=== PATIENT | female | born 1990 | race Caucasian/White ===

== ENCOUNTER 2020-04-25 10:21 | Observation (INO) | payer BC, SELFPAY ==
[2020-04-25] VITALS (12 sets, daily range): BP systolic 132–161; BP diastolic 70–109; PULSE 77–113; RESP 18; TEMP 36.8; BMI 39.4
--- NOTE | ~2020-04-25 | US_ITS ---
EXAMINATION: US OB follow up, US umbilical doppler EXAM DATE: 04/25/2020 11:48 (accession [id number]), 04/25/2020 11:49 (accession [id number]) INDICATION: growth, MICHAEL. Elevated blood pressure. 3rd trimester. TECHNIQUE: Pelvic obstetrical transabdominal sonogram was performed by a technologist. There are mu ltiple grayscale and Doppler images available for interpretation. Arterial Doppler umbilical artery. FINDINGS: There is a single fetus identified in vertex presentation with a heart rate of 161 beats pe r minute. The placenta is located in the right fundal position. There is no sonographic evidence of retroplacental hemorrhage identified. The amniotic fluid index is 11.2 centimeters, which is normal. BIOMETRIC DATA: Biparietal diameter (BPD): 7.9cm ----------------> 31 weeks 6 days. Head circumference (HC): 27.9 cm ----------------> 30 weeks 3 days. Abdominal circumference (AC): 26.8 cm ----------> 31 weeks 0 days. Femur length (FL): 5.7 cm --------------------------> 30 weeks 0 days. These measurements are concordant. HC/AC ratio is 1.04 (The 5th -- 95th percentile range is 0.96-1.17. Estimated weight is 1618 g +/- 243 g. This is the 62nd percentile when the currently reported clinical gestation age 30 weeks 0 days, clinical estimated date of delivery (LESTER-OPE) 07/04/2020 is us ed. estimated gestational age based on measurements from this exam is 30 weeks 6 days, with an estimated date of delivery (LESTER-AUA) 06/28. UMBILICAL ARTERY DOPPLER Systolic/diastolic ratios obtained as follows: Near baby: 2.2 Mid aspect: 2.5 Near Placenta: 2.8 (The 5th -- 95th percentile range is 2.3-4.1). IMPRESSION: 1. Single fetus in vertex presentation with heart rate 161 beats per minute. 2. Estimated weight of 1618 grams, 62nd percentile using the currently reported clinical gesta tion age of 30 weeks 0 days, LESTER(OPE) 07/04. 3. Average umbilical artery Doppler systolic/diastolic ratio 2.5, normal. 4. Normal MICHAEL 11.2 cm. Reviewed, dictated and finalized at location B. ISTRY LABORATORY TECHNICIAN IMPRESSION: 1. Single fetus in vertex presentation with heart rate 161 beats per minute. 2. Estimated weight of 1618 grams, 62nd percentile using the currently r eported clinical gestation age of 30 weeks 0 days, LESTER(OPE) 07/04. 3. Average umbilical artery Doppler systolic/diastolic ratio 2.5, normal. 4. Normal MICHAEL 11.2 cm. IMPRESSION: 1. Single fetus in vertex presentation with heart rate 161 beats per minute. 2. Estimated weight of 1618 grams, 62nd percentile using the currently r eported clinical gestation age of 30 weeks 0 days, LESTER(OPE) /. 3. Average umbilical artery Doppler systolic/diastolic ratio 2.5, normal. 4. Normal MICHAEL 11.2 cm.
[2020-04-25 10:59] LABS: Basophils Percent Auto 0.2 % (0.2-1.2); Eosinophils Absolute Auto 0.1 K/mm3 (0-0.3); Eosinophils Percent Auto 0.6 % (0-4.4); Hematocrit 36.7 % (37.0-47.0); Hemoglobin 12.3 g/dL (12.0-15.0); Immature Granulocyte Absolute 0.08 K/mm3 (0.00-0.031); Immature Granulocyte Percent A 0.7 % (0-0.5); Lymphocytes Absolute Auto 1.28 K/mm3 (0.9-3.2); Lymphocytes Percent Auto 11.7 % (18.3-44.2); Mean Corpuscular HGB Conc 33.5 g/dl (32-36); Mean Corpuscular Hemoglobin 27.5 pg (26-34); Mean Corpuscular Volume 81.9 fl (80-100); Mean Platelet Volume 9.2 fl (7.4-10.4); Monocytes Absolute Auto 0.5 K/mm3 (0.1-0.6); Monocytes Percent Auto 4.6 % (2.6-8.5); Neutrophils Percent Auto 82.2 % (45.5-73.1); Platelet Count Result 166 k/mm3 (150-375); Red Blood Count 4.48 M/mm3 (4.2-5.4); Red Cell Distribution Width 14.5 % (11.5-14.5); White Blood Count 10.9 K/mm3 (4.5-10.0)
[2020-04-25 11:10] LABS: Add Urine Microscopic? YES; Appearance Urine Clear (Clear); Bacteria Urine Trace /hpf; Bilirubin Urine Negative (Negative); Blood Urine Negative (Negative); Color Urine Straw (Yellow); Glucose Urine UA Negative (Negative); Ketones Urine Negative (Negative); Leukocyte Esterase Ur Negative LEU/UL (NEGATIVE); Nitrate Urine Negative (Negative); Protein Urine 1+ mg/dL (Negative); RBC Urine 0-2 /hpf (0-2); Specific Grav Ur 1.006 (1.001-1.035); Squamous Epithelial Cell Urine Many /hpf (Few); Urobilinogen Urine Negative mg/dL (<2.0); WBC Urine 0-3 /hpf (0-3)
[2020-04-25 11:11] LABS: Alanine Aminotransferase 12 U/L (4-35); Albumin Level 3.7 g/dL (3.5-5.1); Alkaline Phosphatase 68 U/L (38-126); Anion Gap 8 mmol/L (8-16); Aspartate Amino Transferase 21 U/L (14-36); Bilirubin,Total 0.2 mg/dL (0.2-1.3); Blood Urea Nitrogen 8 mg/dL (7-17); Calcium 9.2 mg/dL (8.4-10.2); Carbon Dioxide 23 mmol/L (22-30); Chloride 105 mmol/L (98-107); Estimated Glomerular Filt Rate > 60; Glucose 93 mg/dL (65-105); Potassium 3.6 mmol/L (3.4-5.0); Sodium 136 mmol/L (137-145); Uric Acid 3.8 mg/dL (2.5-7.5)
[2020-04-25 11:13] LABS: Creatinine Urine 37.9 mg/dL; Total Protein Urine Random 32 mg/dL; Ur Ttl Prot Creatinine Ratio 0.84 mg/mg (0-0.20)
--- NOTE | 2020-04-25 11:27 | PC.NURSE ---
pt to ultrasound per wheelchair.
--- NOTE | 2020-04-25 11:49 | PC.NURSE ---
pt returned from ultrasound per wheelchair.
--- NOTE | 2020-04-25 13:02 | PC.NURSE ---
1257-Dr. Gallegos notified of pt's labs results, ultrasound results, reactive NST and blood pressures. New orders received to increase Labetalol to 200mg BID and have pt stay to collect 24 hour urine. NST Qshift and pt may eat.
[2020-04-25] MEDS: LABETALOL HCL 100 MG TABLET 200 MG PO ×2 (17:59→23:06)
[2020-04-26] VITALS (13 sets, daily range): BP systolic 124–155; BP diastolic 64–104; PULSE 77–102; RESP 18; TEMP 36.6
[2020-04-26] MEDS: LABETALOL HCL 100 MG TABLET 200 MG PO ×2 (05:57→14:18)
--- NOTE | 2020-04-26 11:58 | PM.OBTRLD ---
OB - Triage/Final Diagnosis Visit Information Comments/Additional reasons for admission: I have assessed the risk for this patient, Miya Erickson, and determined that she would benefit from observation care. Evaluation Laboratory results: Laboratory Tests 04/25/20 04/25/20 04/25/20 10:31 10:31 10:47 WBC 10.9 H RBC 4.48 Hgb 12.3 Hct 36.7 L MCV 81.9 MCH 27.5 MCHC 33.5 RDW 14.5 Plt Count 166 MPV 9.2 Immature Gran % (Auto) 0.7 H Neut % (Auto) 82.2 H Lymph % (Auto) 11.7 L [place] % (Auto) 4.6 Eos % (Auto) 0.6 Baso % (Auto) 0.2 Lymph # (Auto) 1.28 [place] # (Auto) 0.5 Eos # (Auto) 0.1 Baso # (Auto) 0.0 Abs Immat Gran (auto) 0.08 H Absolute Neuts (auto) 9.0 H Absolute Nucleated RBC 0.0 Nucleated RBC % 0.0 Sodium Potassium Chloride Carbon Dioxide Anion Gap BUN Creatinine Estim Creat Clear Calc Estimated GFR Glucose Uric Acid Calcium Total Bilirubin AST ALT Alkaline Phosphatase Total Protein Albumin Urine Color Straw Urine Appearance Clear Urine pH 7.0 Ur Specific [place] 1.006 Urine Protein 1+ H Urine Glucose (UA) Negative Urine Ketones Negative Ur Blood (Man) Negative Urine Nitrate Negative Urine Bilirubin Negative Urine Urobilinogen Negative Ur Leukocyte Esterase Negative Urine RBC 0-2 Urine WBC 0-3 Ur Squamous Epith Cells Many H Urine Bacteria Trace U Random Total Protein 32 Urine Creatinine 37.9 Protein/Creat Ratio 2 0.84 H 04/25/20 10:47 WBC RBC Hgb Hct MCV MCH MCHC RDW Plt Count MPV Immature Gran % (Auto) Neut % (Auto) Lymph % (Auto) [place] % (Auto) Eos % (Auto) Baso % (Auto) Lymph # (Auto) [place] # (Auto) Eos # (Auto) Baso # (Auto) Abs Immat Gran (auto) Absolute Neuts (auto) Absolute Nucleated RBC Nucleated RBC % Sodium 136 L Potassium 3.6 Chloride 105 Carbon Dioxide 23 Anion Gap 8 BUN 8 Creatinine 0.50 L Estim Creat Clear Calc Not Reportable Estimated GFR > 60 Glucose 93 Uric Acid 3.8 Calcium 9.2 Total Bilirubin 0.2 AST 21 ALT 12 Alkaline Phosphatase 68 Total Protein 7.0 Albumin 3.7 Urine Color Urine Appearance Urine pH Ur Specific [place] Urine Protein Urine Glucose (UA) Urine Ketones Ur Blood (Man) Urine Nitrate Urine Bilirubin Urine Urobilinogen Ur Leukocyte Esterase Urine RBC Urine WBC Ur Squamous Epith Cells Urine Bacteria U Random Total Protein Urine Creatinine Protein/Creat Ratio 2 Vital signs: Vital Signs - 24 hr 04/25/20 13:13 04/25/20 17:59 04/25/20 19:00 Temperature 36.8 C Pulse Rate 90 102 H Respiratory Rate 18 Blood Pressure Blood Pressure [Right Arm] 161/109 H 04/25/20 20:02 04/25/20 20:20 04/25/20 20:31 Temperature Pulse Rate 93 94 113 H Respiratory Rate Blood Pressure 160/96 H 143/73 H 159/86 H Blood Pressure [Right Arm] 04/25/20 21:01 04/25/20 21:31 04/25/20 22:01 Temperature Pulse Rate 96 85 93 Respiratory Rate Blood Pressure 145/78 H 146/82 H 134/74 Blood Pressure [Right Arm] 04/25/20 23:01 04/25/20 23:06 04/26/20 00:01 Temperature Pulse Rate 77 77 102 H Respiratory Rate Blood Pressure 132/70 127/65 Blood Pressure [Right Arm] 04/26/20 04:01 04/26/20 04:10 04/26/20 05:57 Temperature 36.6 C Pulse Rate 82 92 Respiratory Rate 18 Blood Pressure 135/75 155/104 H Blood Pressure [Right Arm] 04/26/20 06:01 04/26/20 07:01 04/26/20 08:01 Temperature Pulse Rate 83 87 77 Respiratory Rate Blood Pressure 146/84 H 135/73 124/64 Blood Pressure [Right Arm] 04/26/20 09:01 04/26/20 10:01 04/26/20 11:01 Temperature Pulse Rate 77 79 86 Respiratory Rate Blood Pressure 133/80 127/70 128/71 Blood Pressure [Right Arm] Final Diagnosis (1) Chronic hypertension affecting : Code(s): O1
[2020-04-26 12:00] LABS: Collection Time Urine 24 HOURS
[2020-04-26 12:01] LABS: Patient Weight 222 Lbs
[2020-04-26 12:24] LABS: Total Volume 24 Hour Urine 4200 ml
[2020-04-26 12:27] LABS: Creatinine Urine 41.2 mg/dL
[2020-04-26 12:41] LABS: Specific Gravity Ur 1.004
[2020-04-26 12:42] LABS: Creatinine Clearance Urine 206.4 ml/min (75-125); Serum Creat 0.5; Total Volume 24 Hour Urine 4200 ml
[2020-04-26 14:09] LABS: Total Protein Urine 24 Hr 697 mg/24hr (0-149); Total Protein Urine Random 16.6 mg/dL (0.0-11.9)
[2020-04-26] MEDS: BETAMETHASONE SOD PHOS/ACETATE 30 MG/5 ML VIAL 12 MG IM (14:36)
== END 2020-04-26 14:47 | disposition home or self-care (01) ==
LOC: ANHOBPP 19:51 → ANHOBOP 04-26 11:04 → ANHOBPP 04-26 11:04
PROVIDERS: Admitting Provider Obstetrics & Gynecology Gynecology; PCP Family Medicine; Visit Provider Obstetrics & Gynecology
DX: O10.919 Unspecified pre-existing hypertension complicating pregnancy, unspecified trimester (principal); Z3A.30 30 weeks gestation of pregnancy
CPT/HCPCS: 36415; 59025; 76816; 76820; 80053; 81001; 81050; 82570; 82575; 84156; 84550; 85025; 87086; 96372; 99199; A9270; G0378; G0379; J0702

== ENCOUNTER 2020-04-27 14:07 | Outpatient (CLI) | payer BC, SELFPAY ==
[2020-04-27] MEDS: BETAMETHASONE SOD PHOS/ACETATE 30 MG/5 ML VIAL 12 MG IM (14:20)
== END 2020-04-27 14:08 | disposition home or self-care (01) ==
LOC: ANHOBOP 14:17
PROVIDERS: PCP Family Medicine; Visit Provider Obstetrics & Gynecology
DX: O36.8990 Maternal care for other specified fetal problems, unspecified trimester, not applicable or unspecified (principal); Z3A.00 Weeks of gestation of pregnancy not specified
CPT/HCPCS: 96372; J0702

== ENCOUNTER 2020-05-09 10:02 | Outpatient (CLI) | payer BC, SELFPAY ==
[2020-05-09] VITALS (10 sets, daily range): BP systolic 140–166; BP diastolic 67–109; PULSE 85–106
[2020-05-09 10:52] LABS: Hematocrit 35.1 % (37.0-47.0); Hemoglobin 12.1 g/dL (12.0-15.0); Mean Corpuscular HGB Conc 34.5 g/dl (32-36); Mean Corpuscular Hemoglobin 27.3 pg (26-34); Mean Corpuscular Volume 79.2 fl (80-100); Mean Platelet Volume 10.5 fl (7.4-10.4); Platelet Count Result 184 k/mm3 (150-375); Red Blood Count 4.43 M/mm3 (4.2-5.4); Red Cell Distribution Width 14.4 % (11.5-14.5); White Blood Count 13.5 K/mm3 (4.5-10.0)
[2020-05-09 10:58] LABS: Add Urine Microscopic? YES; Appearance Urine Clear (Clear); Bilirubin Urine Negative (Negative); Blood Urine Negative (Negative); Color Urine Colorless (Yellow); Glucose Urine UA Negative (Negative); Ketones Urine Negative (Negative); Leukocyte Esterase Ur Negative LEU/UL (NEGATIVE); Nitrate Urine Negative (Negative); Protein Urine 1+ mg/dL (Negative); RBC Urine 0-2 /hpf (0-2); Specific Grav Ur 1.006 (1.001-1.035); Squamous Epithelial Cell Urine Occasional /hpf (Few); Urobilinogen Urine Negative mg/dL (<2.0); WBC Urine 0-3 /hpf (0-3)
[2020-05-09 11:03] LABS: Alanine Aminotransferase 11 U/L (4-35); Albumin Level 3.5 g/dL (3.5-5.1); Alkaline Phosphatase 66 U/L (38-126); Anion Gap 6 mmol/L (8-16); Aspartate Amino Transferase 18 U/L (14-36); Bilirubin,Total 0.2 mg/dL (0.2-1.3); Blood Urea Nitrogen 11 mg/dL (7-17); Calcium 9.1 mg/dL (8.4-10.2); Carbon Dioxide 22 mmol/L (22-30); Chloride 106 mmol/L (98-107); Creatinine Urine 29.5 mg/dL; Estimated Glomerular Filt Rate > 60; Glucose 124 mg/dL (65-105); Potassium 3.5 mmol/L (3.4-5.0); Sodium 134 mmol/L (137-145); Total Protein Urine Random 48 mg/dL; Ur Ttl Prot Creatinine Ratio 1.63 mg/mg (0-0.20); Uric Acid 4.3 mg/dL (2.5-7.5)
[2020-05-09 11:10] LABS: Lymphocytes Absolute Manual 1.35 K/mm3 (1.1-4.5); Monocytes Absolute Manual 0.54 K/mm3 (0.1-0.90); Monocytes Percent Manual 4 % (3-9); Neutrophils Percent Manual 86 % (46-73); Total Cells Counted 100
[2020-05-09 11:11] LABS: Platelet Estimate Adequate (Adequate)
[2020-05-09] MEDS: LABETALOL HCL 100 MG TABLET 200 MG PO (11:40)
[2020-05-09] MEDS: NIFEdipine 30 MG TAB.ER.24 PO (11:40)
--- NOTE | 2020-05-09 14:20 | PC.NURSE ---
Dr Gallegos notified of Bp's after medications. Orders for RX plan at home. No repeat 24 hours at this time.
== END 2020-05-09 14:25 | disposition home or self-care (01) ==
LOC: ANHOBOP 10:06 → ANHOBPP 10:07
PROVIDERS: PCP Family Medicine; Visit Provider Obstetrics & Gynecology
DX: O13.9 Gestational [pregnancy-induced] hypertension without significant proteinuria, unspecified trimester (principal); Z3A.00 Weeks of gestation of pregnancy not specified
CPT/HCPCS: 36415; 59025; 80053; 81001; 82570; 84156; 84550; 85025; 85055; 87086; 87088; 99199; A9270

== ENCOUNTER 2020-05-13 11:16 | Inpatient (IN) | payer BC, SELFPAY ==
[2020-05-13] VITALS (26 sets, daily range): BP systolic 137–176; BP diastolic 76–111; PULSE 87–108; TEMP 37.2; BMI 39.4
--- NOTE | ~2020-05-13 | US_ITS ---
EXAMINATION: US OB follow up, US umbilical doppler EXAM DATE: 05/14/2020 10:38 INDICATION: Growth, MICHAEL- Please complete at bedside . Elevated blood pressure. 3rd trimester. TECHNIQUE: Pelvic obstetrical transabdominal sonogram was performed by a technologist. Umbilical art rubi Dopplers. There are multiple grayscale and Doppler images available for interpretation. Compariso n is made to prior examination from 04/25/2020. FINDINGS: There is a single fetus identified in vertex presentation with a heart rate of 145 beats pe r minute. The placenta is located in the posterior fundal position. There is no sonographic evidence of retroplacental hemorrhage identified. The amniotic fluid index is 13.7 centimeters, which is norm al. BIOMETRIC DATA: Biparietal diameter (BPD): 8.2cm ----------------> 32 weeks 6 days. Head circumference (HC): 30.9 cm ----------------> 34 weeks 4 days. Abdominal circumference (AC): 28.7 cm ----------> 32 weeks 5 days. Femur length (FL): 6.5 cm --------------------------> 33 weeks 2 days. These measurements are concordant. HC/AC ratio is 1.08 (The 5th -- 95th percentile range is 0.95-1.11. Estimated weight is 2120 g +/- 318 g. This is the 53rd percentile when the currently reported clinical gestation age 32 weeks 5 days, clinical estimated date of delivery (LESTER-OPE) 07/04/2020 is us ed. estimated gestational age based on measurements from this exam is 33 weeks 3 days, with an estimated date of delivery (LESTER-AUA) 06/29. UMBILICAL ARTERY DOPPLER Systolic/diastolic ratios obtained as follows: Near baby: 3.5 Mid aspect: 2.8 Near Placenta: 2.9 (The 5th -- 95th percentile range is 2.11-3.67). IMPRESSION: 1. Single fetus in vertex presentation with heart rate 145 beats per minute. 2. Estimated weight of 2120 grams, 52nd percentile using the currently reported clinical gesta tion age of 32 weeks 5 days, LESTER(OPE) 07/04/2020. 3. Normal MICHAEL 13.7 cm. 4. Normal umbilical artery Doppler ratios. Reviewed, dictated and finalized at location B. ESSIONAL POKER PLAYER IMPRESSION: 1. Single fetus in vertex presentation with heart rate 145 beats per minute. 2. Estimated weight of 2120 grams, 52nd percentile using the currently r eported clinical gestation age of 32 weeks 5 days, LESTER(OPE) 07/04/2020. 3. Normal MICHAEL 13.7 cm. 4. Normal umbilical artery Doppler ratios.
[2020-05-13 12:24] LABS: Basophils Percent Auto 0.2 % (0.2-1.2); Eosinophils Absolute Auto 0.1 K/mm3 (0-0.3); Eosinophils Percent Auto 0.8 % (0-4.4); Hematocrit 33.6 % (37.0-47.0); Hemoglobin 11.7 g/dL (12.0-15.0); Immature Granulocyte Absolute 0.07 K/mm3 (0.00-0.031); Immature Granulocyte Percent A 0.5 % (0-0.5); Lymphocytes Absolute Auto 1.64 K/mm3 (0.9-3.2); Lymphocytes Percent Auto 12.6 % (18.3-44.2); Mean Corpuscular HGB Conc 34.8 g/dl (32-36); Mean Corpuscular Hemoglobin 27.3 pg (26-34); Mean Corpuscular Volume 78.3 fl (80-100); Mean Platelet Volume 9.3 fl (7.4-10.4); Monocytes Absolute Auto 0.6 K/mm3 (0.1-0.6); Monocytes Percent Auto 4.8 % (2.6-8.5); Neutrophils Absolute Auto 10.6 K/mm3 (1.3-6.7); Neutrophils Percent Auto 81.1 % (45.5-73.1); Platelet Count Result 184 k/mm3 (150-375); Red Blood Count 4.29 M/mm3 (4.2-5.4); Red Cell Distribution Width 14.8 % (11.5-14.5)
[2020-05-13 12:29] LABS: Add Urine Microscopic? YES; Appearance Urine Clear (Clear); Bacteria Urine Trace /hpf; Bilirubin Urine Negative (Negative); Blood Urine Negative (Negative); Color Urine Straw (Yellow); Glucose Urine UA Negative (Negative); Ketones Urine Negative (Negative); Leukocyte Esterase Ur Negative LEU/UL (NEGATIVE); Mucus Urine Rare /lpf; Nitrate Urine Negative (Negative); Protein Urine 2+ mg/dL (Negative); RBC Urine 0-2 /hpf (0-2); Specific Grav Ur 1.011 (1.001-1.035); Squamous Epithelial Cell Urine Moderate /hpf (Few); Transitional Epi Cells Urine Rare /hpf (None Seen); Urobilinogen Urine Negative mg/dL (<2.0); WBC Urine 0-3 /hpf (0-3)
[2020-05-13 12:40] LABS: Alanine Aminotransferase 9 U/L (4-35); Albumin Level 3.5 g/dL (3.5-5.1); Alkaline Phosphatase 72 U/L (38-126); Anion Gap 5 mmol/L (8-16); Aspartate Amino Transferase 17 U/L (14-36); Bilirubin,Total 0.2 mg/dL (0.2-1.3); Blood Urea Nitrogen 11 mg/dL (7-17); Calcium 9.2 mg/dL (8.4-10.2); Carbon Dioxide 21 mmol/L (22-30); Chloride 108 mmol/L (98-107); Estimated Glomerular Filt Rate > 60; Glucose 95 mg/dL (65-105); Potassium 3.4 mmol/L (3.4-5.0); Sodium 134 mmol/L (137-145); Uric Acid 4.1 mg/dL (2.5-7.5)
[2020-05-13 12:49] LABS: Creatinine Urine 51.7 mg/dL
--- NOTE | 2020-05-13 13:39 | OBADM ---
This patient, Miya Erickson, admitted to the OB room OB Post 113 for observation. Patient/family oriented to hospital policies and general routines including ID bracelet, bed and alarms, visiting hours, pain management, procedures, bathroom and other care routines, personal items, smoking policy, room service/diet, and visiting hours. Patient/Family are encouraged to report perceived risks to care and to ask questions if they do not understand what they are told or what they should do.
[2020-05-13] MEDS: LABETALOL HCL 100 MG TABLET 200 MG PO ×2 (16:02→22:02)
[2020-05-13 18:05] LABS: Total Protein Urine Random 246 mg/dL; Ur Ttl Prot Creatinine Ratio 4.76 mg/mg (0-0.20)
--- NOTE | 2020-05-13 18:11 | PC.NURSE ---
1809- Dr. Jara called in, urine results discussed. Will see if Dr. Gallegos returns page in the next 15 minutes.
--- NOTE | 2020-05-13 18:23 | PC.NURSE ---
1819- Spoke with Dr. Jara, labs reviewed. As long as blood pressures are stable tonight, patient to be transferred tomorrow.
--- NOTE | 2020-05-13 18:24 | PC.NURSE ---
1818- Dr. Gallegos returned page. Protein/Creatnine ratio reviewed. Dr. Jara may transfer patient tonight if desired or wait until tomorrow when 24 hour urine results.
[2020-05-14] VITALS (56 sets, daily range): BP systolic 139–189; BP diastolic 80–125; PULSE 74–140; TEMP 36.7–37.1
[2020-05-14] MEDS: LABETALOL HCL 100 MG TABLET 200 MG PO (03:59)
[2020-05-14] MEDS: LABETALOL HCL 100 MG TABLET PO (05:20)
--- NOTE | 2020-05-14 08:10 | P.HP_ITS ---
Obstetrics - Admit Note Admission Note: record reviewed.Pertinent additions to the history and/or any subsequent changes in the physical findings that are not consistent with the expected course of the were found. Additions to the history and/or subsequent changes in the physical findings follow. [id number] at 32 6/7 wks this am admitted from [facility] after nonreassurring NST and elevated BP'a at 174/105 and 184/114. Patient denies symptoms of preeclampsia. She reports normal movement. She is s/p steriods 04/25&04/26. BP's have mostly come to 140-50/90's with random elevations to 160's/100's. BP meds changed to Labetalol 300 mg q 6 hours this am. Continue Procardia. labs reviewed and are stable except increased pr/cr ratio now 4.76 with 24 hour urine in progress. abdomen soft, nt FHTs reassuring with acels and no decels a/p: 1. IUP 32 6/7 2. Preeclampsia-continue BP meds, close monitoring, complete 24hour urine, plan admission until delivery 3. U/s today for growth, dopplers, and MICHAEL. [place] dopplers q Wednesday, MICHAEL Wednesday and Wednesday
--- NOTE | 2020-05-14 09:14 | PC.NURSE ---
0914- SPoke with Dr. Jara regarding patient BP's, orders to increase dosage of Procardia to 60 mg daily
[2020-05-14] MEDS: NIFEdipine 30 MG TAB.ER.24 60 MG PO (09:25)
[2020-05-14] MEDS: LABETALOL HCL 100 MG TABLET 300 MG PO ×3 (09:31→21:56)
[2020-05-14 12:49] LABS: Collection Time Urine 24 HOURS
[2020-05-14 12:50] LABS: Patient Weight 222 Lbs; Total Volume 24 Hour Urine 3200 ml
[2020-05-14 13:16] LABS: Creatinine Urine 57.2 mg/dL
[2020-05-14 13:27] LABS: Creatinine Clearance Urine 155.9 ml/min (75-125); Serum Creat 0.7
--- NOTE | 2020-05-14 13:44 | PC.NURSE ---
1340- Spoke with Dr. rodriguez, BP's reviewed. Orders for 30mg Procardia po at 1600 with labetalol dosing
[2020-05-14 14:28] LABS: Total Protein Urine 24 Hr 3046 mg/24hr (0-149); Total Protein Urine Random 95.2 mg/dL (0.0-11.9)
[2020-05-14] MEDS: NIFEdipine 30 MG TAB.ER.24 PO ×2 (15:39→19:23)
[2020-05-15] VITALS (34 sets, daily range): BP systolic 127–162; BP diastolic 74–104; PULSE 81–110; TEMP 36.6–36.9; O2SAT 99–100
[2020-05-15] MEDS: LABETALOL HCL 100 MG TABLET 300 MG PO ×2 (04:05→09:35)
[2020-05-15] MEDS: NIFEdipine 30 MG TAB.ER.24 60 MG PO (08:39)
--- NOTE | 2020-05-15 09:10 | PC.NURSE ---
0900- Dr. Gallegos at bedside discussing plan of care with patient. Patient to be transferred to [place].
--- NOTE | 2020-05-15 09:28 | PC.NURSE ---
0927- Report given to JEREMIAS Zarate from [place].
--- NOTE | 2020-05-15 09:31 | PC.NURSE ---
0930- Osmin Zarate called from [place], requesting MAgnesium 4 gm bolus followed by 2 g/hr to be started per [facility].
--- NOTE | 2020-05-15 09:32 | PC.NURSE ---
0931- Spoke with Dr. storey, orders placed for MAg 4 gm bolus followed by 2 g/hr.
[2020-05-15] MEDS: LACTATED RINGERS 1,000 ML 75 ML IV CONT (09:38)
[2020-05-15] MEDS: MAGNESIUM SULF 4 GM/WATER100ML 4 GM/100 ML BAG IVPB (09:41)
[2020-05-15] MEDS: MAGNESIUM SULF 20GM/WATER500ML 500 ML 50 MG IV CONT (10:06)
--- NOTE | 2020-05-15 10:24 | PC.NURSE ---
1020-[facility] transport team here to transfer patient.
--- NOTE | 2020-05-15 10:38 | PC.NURSE ---
1030- Patient left via ambulance with JEREMIAS Zarate to be transferred to [place]
--- NOTE | 2020-05-25 09:47 | PM.TDS ---
Transfer Discharge Sum: Prov Provider Date of admission: 05/14/20 14:40 Primary care physician: Jatinder Elise MD Admitting clinician: Iliana Jara MD DS: Admitting Diagnosis Admitting Diagnosis Admitting Diagnosis: severe preeclampsia DS: Discharge Diagnosis Discharge Diagnosis (1) Severe pre-eclampsia affecting second : Code(s): O14.10 - Severe pre-eclampsia, unspecified trimester Status: Acute (2) Chronic hypertension affecting : Code(s): O10.919 - Unspecified pre-existing hypertension complicating , unspecified trimester Status: Acute Transfer Discharge Sum: Med Medications Active and Home Medications: Home Medications 1 tablet PO DAILY 04/25/20 [History Confirmed 05/13/20] aspirin 81 mg PO DAILY 04/25/20 [History Confirmed 05/13/20] ergocalciferol (vitamin D2) [Vitamin D2] 50,000 unit PO WEEKLY 04/25/20 [History Confirmed 05/13/20] labetalol 200 mg PO Q6H #120 tablet 05/09/20 [Rx Confirmed 05/13/20] nifedipine [Procardia XL] 30 mg PO DAILY #30 tablet 05/09/20 [Rx Confirmed 05/13/20] nifedipine [Procardia XL] 30 mg PO QAM tablet 05/09/20 [Rx Confirmed 05/13/20] Transfer Discharge Sum: Hosp Hospital Course Hospital course: Miya Erickson is a 30 year old female at 32 weeks admitted for elevated bps and worsening proteinuria. patient with a prior diagnosis of Preeclampsia. Patient with a prior delivery of 34 week delivery for severe preeclampsia. Due to worsening status an prematurity patient was transfered to a tertiary center. Time Spent with Patient Time attestation: Total time spent providing and/or coordinating transfer services:
[2020-05-28 12:33] VITALS: BP 141/72; PULSE 101
== END 2020-05-15 10:30 | disposition short-term general hospital (02) | DRG 833 ==
LOC: ANHOBOP 11:23 → ANHOBPP 11:23 → ANHOBOP 13:12 → ANHOBPP 05-14 13:02
PROVIDERS: Admitting Provider Obstetrics & Gynecology Gynecology; PCP Family Medicine; Visit Provider Obstetrics & Gynecology
DX: O14.13 Severe pre-eclampsia, third trimester (principal); O10.913 Unspecified pre-existing hypertension complicating pregnancy, third trimester; Z3A.32 32 weeks gestation of pregnancy
CPT/HCPCS: 36415; 59025; 76816; 76820; 80053; 81001; 81050; 82570; 82575; 84156; 84550; 85025; 87086; A9270; J3475; J7120

== ENCOUNTER 2021-06-15 14:19 | Emergency (ER) | payer BC, SELFPAY ==
--- NOTE | ~2021-06-15 | XR_ITS ---
EXAMINATION: XR hand LT min 3V DATE: 06/15/2021 14:38 INDICATION: Posttraumatic pain and bruising to the left fourth and fifth metacarpals TECHNIQUE: Posteroanterior, oblique and lateral views of the left hand were obtained. COMPARISON: 04/14/2011 FINDINGS: Chronic nondisplaced, nonunited ulnar styloid avulsion fracture. Alignment is normal. No acute fractu re. Joint spaces are normal. Soft tissues are unremarkable. IMPRESSION: 1. No acute osseous abnormality. Reviewed, dictated and finalized at location A.
[2021-06-15 14:28] VITALS: BP 154/98; PULSE 110; RESP 18; TEMP 37.1; O2SAT 100
--- NOTE | 2021-06-15 14:39 | ED.UPPEXIN ---
HPI - Extremity Injury (Upper) General Chief Complaint: Extremity Injury, Upper Stated Complaint: Lt Hand Pain Time Seen by Provider: 06/15/21 14:39 Source: patient Mode of arrival: ambulatory Limitations: no limitations History of Present Illness HPI narrative: 31-year-old female presents with pain to left hand at the fifth MCP. Reports that yesterday she was riding an [id number] through her yard, had a bump and left hand smacked against dashboard. Increased pain with movement of left little finger. Took Tylenol prior to arrival. All systems reviewed and negative except as noted above. Related Data Home Medications Medication Instructions Recorded Confirmed No Home Medications 06/15/21 06/15/21 Allergies Allergy/AdvReac Type Severity Reaction Status Date / Time Penicillins AdvReac Mild Hives Verified 06/15/21 14:31 Review of Systems Review of Systems: CONSTITUTIONAL: Denies fever, chills, or sweats. EYES: Denies visual changes, redness, or discharge. ENT: Denies rhinorrhea, congestion, sore throat, or otalgia. CARDIOVASCULAR: Denies chest pain, palpitations, or edema. RESPIRATORY: Denies cough or dyspnea. GASTROINTESTINAL: Denies abdominal pain, nausea, vomiting, or diarrhea. GENITOURINARY: Denies dysuria or hematuria. SKIN: Denies rash or itching. MUSCULOSKELETAL: Denies back pain, joint pain, or myalgia. Reports pain and bruising to left hand. NEUROLOGIC: Denies headache, numbness, or weakness. PSYCHIATRIC: Denies anxiety or depression. All other systems reviewed are negative, except as documented in HPI. COUNTS INCLUDE 234 BEDS AT THE [facility] Past Medical History Medical History (Updated 06/15/21 @ 14:58 by Winnie Cruz NP) Chronic hypertension affecting PIH ( induced hypertension) Severe pre-eclampsia affecting second Comments At time of signature, agree with nursing past medical, surgical, social and family history. There is no relevant family history pertinent to the presenting complaint. Exam Narrative: GENERAL: This is a well-nourished, well-developed patient, in no apparent distress. HEAD: normocephalic, atraumatic. EYES: PERRL. Sclera clear/white. Vision is grossly intact. EARS: External ears normal NOSE: External nose normal NECK: Neck supple, non-tender without lymphadenopathy, masses or thyromegaly. CARDIOVASCULAR: Regular rate and rhythm without murmurs, gallops, or rubs. RESPIRATORY: Clear to auscultation. Breath sounds equal bilaterally. No wheezes, rales, or rhonchi. SKIN: warm, Dry, intact with no suspicious lesions or rash, good texture and turgor. NEURO: awake, alert, and oriented to person, place and time. There were no obvious focal neurologic abnormalities. EXTREMITIES: Tenderness to right fifth MCP joint with bruising to palmar aspect and proximal aspect little finger. Swelling noted. Range of motion of left little finger decreased due to pain. Distal neurovascular intact. Course Course Level of Care: Express Care Visit Vital Signs Vital signs: Vital Signs Temperature 37.1 C 06/15/21 14:28 Pulse Rate 110 H 06/15/21 14:28 Respiratory Rate 18 06/15/21 14:28 Blood Pressure 154/98 H 06/15/21 14:28 Pulse Oximetry 100 06/15/21 14:28 Temperature 37.1 C 06/15/21 14:28 Pulse Rate 110 H 06/15/21 14:28 Respiratory Rate 18 06/15/21 14:28 Blood Pressure 154/98 H 06/15/21 14:28 Pulse Oximetry 100 06/15/21 14:28 Reviewed. Patient's BP elevated today. She states this is due to pain. Has a history of high blood pressure during but reports since then blood pressure has been normal. MDM - Extremity Injury (Upper) MDM Narrative Medical decision making narrative: Patient is aware of diagnosis, understands and agrees to treatment plan. Anticipatory guidance given. Patient agrees to follow-up as directed and is aware of reasons to seek care at the emergency department. Portions of this record may have been created with voice recognitio
== END 2021-06-15 15:05 | disposition home or self-care (01) ==
PROVIDERS: Emergency Provider Nurse Practitioner Family
DX: R03.0 Elevated blood-pressure reading, without diagnosis of hypertension (principal); S60.222A Contusion of left hand, initial encounter; W22.8XXA Striking against or struck by other objects, initial encounter
CPT/HCPCS: 29130; 73130; 99213; G0463